=== PATIENT | female | born 1995 | race Caucasian/White ===

== ENCOUNTER 2018-06-06 15:20 | Emergency (ER) | payer OTHER ==
[2018-06-06 16:32] VITALS: BP 127/92
--- NOTE | 2018-06-06 16:48 | EDPHY ---
H & P Time Seen by Provider: 06/06/18 16:28 HPI/ROS: CHIEF COMPLAINT: Laceration left thumb HISTORY OF PRESENT ILLNESS: 22-year-old female presents to the emergency department laceration to her left thumb. The patient was at home and accidentally cut the thumb with a knife while chopping care its. The the incident happened just prior to arrival. She was able to control the bleeding with firm direct pressure. She believes her tetanus shot is current. She is right-hand dominant. ROS: Denies numbness or tingling in the fingers, retained foreign body or other injuries. Past Medical/Surgical History: Negative Social History: [employer] student Smoking Status: Never smoked Physical Exam: On examination the patient has a 2 cm laceration to the distal, palmar aspect of the left thumb. No nail avulsion or nail injury noted. It does not extend into DIP joint. No palpable bony tenderness. Full range of motion of the fingers. The other fingers do not appear injured. Constitutional: Initial Vital Signs Temperature (C) 36.7 C 06/06/18 15:31 Heart Rate 67 06/06/18 15:31 Respiratory Rate 18 06/06/18 15:31 Blood Pressure 102/73 06/06/18 15:31 O2 Sat (%) 98 06/06/18 15:31 O2 Delivery Mode Room Air Allergies/Adverse Reactions: No Known Allergies Allergy (Unverified 06/06/18 15:35) Home Medications: Medication Instructions Recorded MIRENA 06/06/18 MDM/Departure - MDM Procedures: Laceration repair. Verbal consent was obtained from the patient. The 2 cm laceration on the left thumb was anesthetized using digital block using 1% lidocaine without epinephrine 0.5% bupivacaine without epinephrine. The wound was irrigated with saline, draped and explored to its base with a gloved finger. There were no deep structures involved. No tendon injury was identified. The wound was repaired with 5 0 Ethilon, 3 sutures. The wound repair was simple. The procedure was performed by myself. ED Course/Re-evaluation: 22-year-old female presents emergency department with laceration to the left thumb. The wound was repaired, see procedure note. Patient was given wound care precautions. - Depart Disposition: Home, Routine, Self-Care Clinical Impression: Laceration of left thumb Qualifiers: Encounter type: initial encounter Damage to nail status: without damage Foreign body presence: without foreign body Qualified Code(s): S61.012A - Laceration without foreign body of left thumb without damage to nail, initial encounter Condition: Good Instructions: Laceration (ED), Care For Your Stitches (ED), Acute Wounds (ED) Additional Instructions: Wound Care Follow-Up: Removal of sutures in 10 days. Suture removal is complimentary in uncomplicated cases. Infection or abnormal findings would require reevaluation by the MD. In that case, you may be billed. Return if you notice any signs or symptoms of infection such as redness, swelling, increased pain, fever, purulent drainage. Referrals: [facility],. [Clinic] - As per Instructions Caridad Duran MD [[facility] [place] Primary Care Provider] - 2-3 days, if not improved ( Primary care provider acquisitions editor)
== END 2018-06-06 17:10 | disposition home or self-care (01) ==
PROC: 0HQGXZZ Repair Left Hand Skin, External Approach (ICD-10-PCS; principal; 2018-06-06)
DX: S61.012A Laceration without foreign body of left thumb without damage to nail, initial encounter (principal); W26.0XXA Contact with knife, initial encounter; Y93.G1 Activity, food preparation and clean up